=== PATIENT | female | born 1995 | race Caucasian/White ===

== ENCOUNTER 2016-07-02 20:39 | Emergency (ER) | payer OTHER ==
[2016-07-02 20:47] VITALS: BP 125/78; PULSE 83; TEMP 98.3; BMI 18.0
--- NOTE | 2016-07-02 20:48 | PDOC ---
History of Present Illness - General History Source: Patient Exam Limitations: No Limitations - History of Present Illness Initial Comments: 07/02/16 21:48 The patient is a 20 year old female, with no significant past medical history, who presents to the emergency department with abdominal pain for the past 6 hours. She describes her abdominal pain as constant and sharp, moderate in severity, localized in the right lower quadrant with radiation to the right flank. She states that movement exacerbates her pain. She also reports chills, nausea and lightheadedness. She denies any sexual partners. The patient was seen at Urgent Care and was sent to the ED to evaluate for kidney stones. The patient denies chest pain, shortness of breath and headache. Denies fever, vomit, diarrhea and constipation. Denies dysuria, frequency, urgency and hematuria. Allergies: None Past surgical history: None reported Social history: No alcohol, tobacco or drug use reported <Sanchez Manzanares - Last Filed: 07/02/16 21:56> <Viv Larry - Last Filed: 07/03/16 03:16> - General Chief Complaint: Pain, Acute Stated Complaint: RT FLANK PAIN SENT BY URGENT CARE FOR [place] Time Seen by Provider: 07/02/16 20:40 Past History <Sanchez Manzanares - Last Filed: 07/02/16 21:56> - Past Medical History Other medical history: denies - Family Disease History Family Disease History: Heart Disease: Father - Immunization History Immunization Up to Date: Yes - Psycho/Social/Smoking Cessation Hx Anxiety: No Suicidal Ideation: No Smoking History: Never smoked Have you smoked in the past 12 months: No Number of Cigarettes Smoked Daily: 0 Hx Alcohol Use: No Drug/Substance Use Hx: No Substance Use Type: None Hx Substance Use Treatment: No <Viv Larry - Last Filed: 07/03/16 03:16> - Past Medical History Allergies/Adverse Reactions: Allergies Allergy/AdvReac Type Severity Reaction Status Date / Time No Known Allergies Allergy Verified 07/02/16 20:40 Home Medications: Ambulatory Orders Levofloxacin [Levaquin] 750 mg PO DAILY #10 tab 07/02/16 Norethindrone AC-Eth Estradiol [Microgestin 21 1-20 Tablet] 1 each PO ASDIR 06/19 Oxycodone HCl/Acetaminophen [Percocet 5-325 mg Tablet] 1 tab PO Q6H PRN #8 tablet MDD 4 tabs 07/02/16 Review of Systems - Review of Systems Able to Perform ROS?: Yes Comments:: 07/02/16 21:50 GENERAL/CONSTITUTIONAL: +Chills. No fever. No weakness. HEAD, EYES, EARS, NOSE AND THROAT: No change in vision. No ear pain or discharge. No sore throat. CARDIOVASCULAR: +Lightheadedness. No chest pain or shortness of breath RESPIRATORY: No cough, wheezing, or hemoptysis. GASTROINTESTINAL: +Right lower quadrant abdominal pain, nausea. No vomiting, diarrhea or constipation. GENITOURINARY: +Right flank pain. No dysuria, frequency, or change in urination. MUSCULOSKELETAL: No joint or muscle swelling or pain. No neck or back pain. SKIN: No rash NEUROLOGIC: No headache, loss of consciousness, or change in strength/sensation. ENDOCRINE: No increased thirst. No abnormal weight change HEMATOLOGIC/LYMPHATIC: No anemia, easy bleeding, or history of blood clots. ALLERGIC/IMMUNOLOGIC: No hives or skin allergy. <Sanchez Manzanares - Last Filed: 07/02/16 21:56> *Physical Exam - Vital Signs Last Vital Signs Temp Pulse Resp BP Pulse Ox 98.3 F 83 18 125/78 99 07/02/16 20:40 07/02/16 20:40 07/02/16 20:40 07/02/16 20:40 07/02/16 20:40 <Sanchez Manzanares - Last Filed: 07/02/16 21:56> - Vital Signs Last Vital Signs Temp Pulse Resp BP Pulse Ox 98.3 F 83 18 125/78 99 07/02/16 20:40 07/02/16 20:40 07/02/16 20:40 07/02/16 20:40 07/02/16 20:40 - Physical Exam Comments: GENERAL:Young adult woman in mild distress, secondary to right flank/right lower quadrant pain HEAD: Normal with no signs of trauma. EYES: PERRLA, EOMI, sclera anicteric, conjunctiva clear. ENT: Ears normal, nares patent, oropharynx clear without exudates. Dry mucous membranes. NECK: Normal range of motion, supple without lymphadenopathy, JVD, or masses. LUNGS: Breath sounds equal, clear to auscultation bilaterally. No wheezes, and no crackles. HEART:Regular rate and rhythm, normal S1 and S2 without murmur, rub or gallop. ABDOMEN:.normal bowel sounds. Mild tenderness of R midabdomen/lower quadrant ; No guarding or rebound.No masses No distention. EXTREMITIES: Normal range of motion, no edema. No clubbing or cyanosis. No erythema, or tenderness. NEUROLOGICAL: Cranial nerves II through XII grossly intact. Normal speech. No focal neurological deficits. SKIN: Warm, Dry, normal turgor, no rashes or lesions noted. <Viv Larry - Last Filed: 07/03/16 03:16> ED Treatment Course - LABORATORY CBC & Chemistry Diagram: 07/02/16 20:56 07/02/16 20:56 - ADDITIONAL ORDERS Additional order review: Laboratory Results 07/02/16 07/02/16 20:56 20:56 Sodium 135 L Potassium 4.1 Chloride 100 Carbon Dioxide 26 Anion Gap 9 BUN 12 Creatinine 0.6 Creat Clearance w eGFR > 60 Random Glucose 96 Calcium 9.0 Total Bilirubin 0.3 AST 18 ALT 13 Alkaline Phosphatase 84 Total Protein 7.4 Albumin 4.2 Urine Color Yellow Urine Appearance Cloudy Urine pH 6.5 Ur Specific [place] 1.025 Urine Protein 2+ H Urine Glucose (UA) Negative Urine Ketones 3+ H Urine Blood 2+ H Urine Nitrite Positive Urine Bilirubin Negative Urine Urobilinogen 0.2 e.u/dl Ur Leukocyte Esterase Trace Urine RBC 2-4 Urine WBC 30-40 Ur Epithelial Cells Few Urine Bacteria Moderate Urine HCG, Qual Negative 07/02/16 20:56 RBC 5.06 MCV 82.2 MCHC 34.0 RDW 13.5 MPV 8.9 Neutrophils % 75.8 Lymphocytes % 15.7 Monocytes % 6.2 Eosinophils % 1.1 Basophils % 1.2 <Sanchez Manzanares - Last Filed: 07/02/16 21:56> - LABORATORY CBC & Chemistry Diagram: 07/02/16 20:56 07/02/16 20:56 <Viv Larry - Last Filed: 07/03/16 03:16> Progress Note - Progress Note Progress Note: Documentation has been prepared under my direction and personally reviewed by me in its entirety. I attest that this documented accurately reflects all work, treatment, procedures and medical decision making performed by me. <Viv Larry - Last Filed: 07/03/16 03:16> Medical Decision Making - Medical Decision Making As noted above, this 20-year-old woman presents with right midabdomen/right lower quadrant pain for the last several hours. She was seen in urgent care facility and sent here when blood was found in urinalysis. Exam shows some tenderness in the right midabdomen/right lower quadrant. Laboratory evaluation shows moderate elevation of the white blood cell count at 13,500; urinalysis significant for positive nitrite; 2-4 RBCs/WBCs 30-40/few epithelial cells/moderate bacteria with negative PGU Chemistry profile is essentially normal Renal stone protocol CT without contrast performed. This shows no evidence of current urolithiasis or hydronephrosis. However, there is mild subtle periureteral soft tissue stranding at the proximal third of the right ureter. No evidence of abscess/fluid accumulation. No other abnormalities seen. Although this could be consistent with passage of stone, in light of the patient 's urinalysis showing red and white blood cells as well as bacteria, CT imaging most consistent with localized ureteritis. Patient given Rocephin 1 g IV. Patient had minimal relief of her pain with Toradol 30 mg IV given earlier, therefore, she was given Dilaudid 0.5 milligrams IV. She was also given 2 L of normal saline IV. Patient reports significant relief in her pain. Patient will be discharged with prescription for Levaquin 750 mg by mouth daily for the next 10 days. She should return to the emergency room if she has worsening pain or develops fever/ vomiting. Otherwise, she should follow-up with her general doctor; she is also given Dr. Alatorre's referral information for urologic follow-up. <Viv Larry - Last Filed: 07/03/16 03:16> *DC/Admit/Observation/Transfer - Attestations Scribe Attestion: 07/02/16 21:50 Documentation prepared by Sanchez Manzanares, acting as medical practice assistant for Viv Larry MD <Sanchez Manzanares - Last Filed: 07/02/16 21:56> <Viv Larry - Last Filed: 07/03/16 03:16> Diagnosis at time of Disposition: Ureteritis - Discharge Dispostion Disposition: HOME Condition at time of disposition: Stable - Prescriptions Prescriptions: Levofloxacin [Levaquin] 750 mg PO DAILY #10 tab Oxycodone HCl/Acetaminophen [Percocet 5-325 mg Tablet] 1 tab PO Q6H PRN #8 tablet MDD 4 tabs PRN Reason: Severe Pain - Referrals Referrals: Chris Alatorre MD [Staff Physician] - - Patient Instructions Printed Discharge Instructions: Urinary Tract Infection Additional Instructions: drink plenty of fluids Levaquin 750mg daily for 10 days tylenol as needed for mild pain percocet as needed for severe pain return to ER if you have severe pain or develop high fever/vomiting followup with your general doctor/urology(Dr Alatorre)within 5 days - Post Discharge Activity Work/School Note: Back to Work
[2016-07-02 21:07] LABS: PH,URINE 6.5 (4.5-8); URINE APPEARANCE Cloudy; URINE BILIRUBIN Negative (NEGATIVE); URINE GLUCOSE (UA) Negative (NEGATIVE); URINE KETONE 3+ (NEGATIVE); URINE LEUK ESTERASE Trace (NEGATIVE); URINE NITRITE Positive (NEGATIVE); URINE UROBILINOGEN 0.2 E.U/dl (0.2-1.0)
[2016-07-02] MEDS ORDERED: SODIUM CHLORIDE 1,000 ML IV STA ×2 (21:12→22:37)
[2016-07-02 21:14] LABS: URINE BLOOD 2+ (NEGATIVE); URINE COLOR YELLOW; URINE PROTEIN 2+ (NEGATIVE)
[2016-07-02 21:18] LABS: BASOPHIL 1.2 % (0-2.0); EOSINOPHIL 1.1 % (0-4.5); MEAN CELL VOLUME 82.2 fl (80-96); MEAN PLT VOLUME 8.9 fl (7.5-11.1); NEUTROPHILS 75.8 % (42.8-82.8); PLATELET COUNT 331 K/MM3 (134-434); RDW 13.5 % (11.6-15.6); URINE BACTERIA MODERATE /hpf (NEGATIVE); URINE WBC 30-40 (3-5); WHITE BLOOD COUNT 13.5 K/mm3 (4.0-10.0)
[2016-07-02 21:29] LABS: ALBUMIN 4.2 g/dl (3.5-5.0); ALK PHOS 84 U/L (32-92); ANION GAP 9 (8-16); BILIRUBIN,TOTAL 0.3 mg/dl (0.2-1.0); CO2 26 mmol/L (22-28); CREATININE 0.6 mg/dl (0.6-1.3); GLUCOSE,RANDOM 96 mg/dl (74-106); SGOT/AST 18 U/L (10-42); SGPT/ALT 13 U/L (10-40); TOT PROT 7.4 g/dl (6.4-8.3)
[2016-07-02] MEDS ORDERED: KETOROLAC TROMETHAMINE 30 MG/1 ML VIAL IVPUSH ONE (21:58)
[2016-07-02] MEDS ORDERED: KETOROLAC TROMETHAMINE 30 MG/1 ML VIAL ONE (22:03)
[2016-07-02] MEDS ORDERED: CEFTRIAXONE 1 GM in DEXTROSE 5%-WATER - 50 ML IVPB ONE (22:35)
[2016-07-02] MEDS ORDERED: HYDROmorphone HCL CARPU-JECT 1 MG/1 ML DISP.SYRIN IVPUSH ONE (22:36)
[2016-07-02] MEDS ORDERED: HYDROmorphone HCL CARPU-JECT 2 MG/1 ML DISP.SYRIN ONE (22:38)
[2016-07-02] MEDS ORDERED: cefTRIAXone SODIUM 1 GM VIAL ONE (22:39)
== END 2016-07-03 00:09 | disposition home or self-care (01) ==
LOC: FER 20:39
PROC: 3E03329 Introduction of Other Anti-infective into Peripheral Vein, Percutaneous Approach (ICD-10-PCS; principal; 2016-07-02)
PROC: 3E033NZ Introduction of Analgesics, Hypnotics, Sedatives into Peripheral Vein, Percutaneous Approach (ICD-10-PCS; 2016-07-02)
PROC: 3E0333Z Introduction of Anti-inflammatory into Peripheral Vein, Percutaneous Approach (ICD-10-PCS; 2016-07-02)
PROC: 3E0337Z Introduction of Electrolytic and Water Balance Substance into Peripheral Vein, Percutaneous Approach (ICD-10-PCS; 2016-07-02)
DX: N28.89 Other specified disorders of kidney and ureter (principal)
CPT/HCPCS: 36415; 74176; 80053; 81003; 81015; 84703; 85025; 87086; 87186; 99285-25

== ENCOUNTER 2016-11-11 13:59 | Emergency (ER) | payer OTHER ==
[2016-11-11 14:22] VITALS: BP 122/67; PULSE 87; TEMP 98.5; BMI 18.1
--- NOTE | 2016-11-11 14:31 | PDOC ---
History of Present Illness - General History Source: Patient Exam Limitations: No Limitations - History of Present Illness Initial Comments: 11/11/16 14:46 The patient is a 20 year old female, with a significant past medical history of PID (treated 1 year ago), frequent UTIs(last flare in July 2016), who presents to the emergency department complaining of right lower quadrant pain for approximately 2 weeks. Patient was referred to the ED from [facility] for further evaluation of worsening RLQ pain with associated urinary frequency. UA at [facility] revealed 25 leukocytes with nitrates. Patient states the RLQ pain was initially intermittent and crampy in nature, but has become more constant and sharp. She reports the pain radiates into the right flank, but denies any fever or chills. Patient has been taking Aleve for the pain with mild relief. She reports dysuria(which has resolved), frequency, urgency, cloudy urine, and urinary odor, but denies any hematuria. She denies any nausea , vomiting, diarrhea, or constipation. Patients last normal bowel movement was last night. Patient reports she is sexually active with one partner, and denies any history of UTIs. Patient is currently on control pills, and her last menstrual period was approximately 2 weeks ago(normally irregular). Patient states the last time she presented to the ED she was diagnosed with a kidney stone and a UTI(finished antibiotic course as directed). Patient states she did not follow-up with Urology, because the stone passed on its own. She recently returned from [place]. Allergies: NKDA Past Surgical History: None reported Social History: buyer broker. Social ETOH use. Non smoker. No recreational drug use Family History: No family history of ovarian cancer or uterine cancer. Father: Heart disease. <Bud Fung - Last Filed: 11/11/16 14:48> <Tito Lazcano - Last Filed: 11/11/16 16:14> - General Chief Complaint: Pain Stated Complaint: RLQ PAIN X 2 WKS Time Seen by Provider: 11/11/16 14:19 Past History <Bud Fung - Last Filed: 11/11/16 14:48> - Past Medical History Disorders: Yes (URETERITIS) Other medical history: MIGRAINE, CHRONIC NECK PAIN - Family Disease History Family Disease History: Heart Disease: Father - Immunization History Immunization Up to Date: Yes - Psycho/Social/Smoking Cessation Hx Anxiety: No Suicidal Ideation: No Smoking History: Never smoked Have you smoked in the past 12 months: No Number of Cigarettes Smoked Daily: 0 Hx Alcohol Use: No Drug/Substance Use Hx: No Substance Use Type: None Hx Substance Use Treatment: No <Tito Lazcano - Last Filed: 11/11/16 16:14> - Past Medical History Allergies/Adverse Reactions: Allergies Allergy/AdvReac Type Severity Reaction Status Date / Time No Known Allergies Allergy Verified 07/02/16 20:40 Home Medications: Ambulatory Orders Norethindrone AC-Eth Estradiol [Microgestin 21 1-20 Tablet] 1 each PO ASDIR 06/19 Sulfamethoxazole/Trimethoprim [Bactrim Ds -] 1 tab PO BID #14 tablet 11/11/16 Review of Systems - Review of Systems Able to Perform ROS?: Yes Comments:: 11/11/16 14:47 CONSTITUTIONAL: Absent: fever, no chills, no fatigue EYES: Absent: visual changes ENT: Absent: ear pain, no sore throat CARDIOVASCULAR: Absent: chest pain, no palpitations RESPIRATORY: Absent: cough, no SOB GI: Present: +Right lower quadrant pain Absent: no nausea, no vomiting, no constipation, no diarrhea GENITOURINARY: Present: +dysuria, +frequency, +urgency, +cloudy urine, +urinary odor, +right flank pain Absent: no hematuria MUSCULOSKELETAL: Absent: no arthralgia, no myalgia SKIN: Absent: rash NEURO: Absent: headache <Fung,Giomilsy - Last Filed: 11/11/16 14:48> *Physical Exam - Vital Signs Last Vital Signs Temp Pulse Resp BP Pulse Ox 98.5 F 87 15 122/67 99 11/11/16 14:01 11/11/16 14:01 11/11/16 14:01 11/11/16 14:01 11/11/16 14:01 - Physical Exam Comments: 11/11/16 14:47 GENERAL: Well-appearing, well-nourished. No apparent distress. HEENT: Normocephalic, atraumatic. PERRL, EOM intact. CARDIOVASCULAR: Normal S1, S2. Regular rate and rhythm. PULMONARY: Clear to auscultation bilaterally. ABDOMEN: Mild tenderness to palpation in the RLQ without guarding or rebound. Soft, non- distended. PELVIC: Normal external genitalia, no vaginal bleeding or discharge, uterus normal in size and nontender, no adnexal masses or tenderness. GENITOURINARY: Mild right CVA tenderness. EXTREMITIES: Normal ROM in all four extremities. No gross deformities. SKIN: Warm, dry. No rash NEUROLOGICAL: No focal neurological deficits. <Bud Fung - Last Filed: 11/11/16 14:48> - Vital Signs Last Vital Signs Temp Pulse Resp BP Pulse Ox 98.5 F 87 15 122/67 99 11/11/16 14:01 11/11/16 14:01 11/11/16 14:01 11/11/16 14:01 11/11/16 14:01 <Tito Lazcano - Last Filed: 11/11/16 16:14> ED Treatment Course - LABORATORY CBC & Chemistry Diagram: 11/11/16 14:40 11/11/16 14:40 <Bud Fung - Last Filed: 11/11/16 14:48> - LABORATORY CBC & Chemistry Diagram: 11/11/16 14:40 11/11/16 14:40 <Tito Lazcano - Last Filed: 11/11/16 16:14> Medical Decision Making - Medical Decision Making 11/11/16 14:36 Patient with a history of right flank and right lower quadrant pain for 2 weeks , seems to be worsening. Urinary tract symptoms include dysuria, which was present initially but has resolved, and persistent frequency and urgency. No hematuria. No fever or chills. She had a kidney stone approximately one year ago which passed spontaneously. She had PID 1 year ago as well which resolved with antibiotics. Her last menstrual period was 2 weeks ago, she is irregular but on control pills. There are no symptoms of including breast tenderness or nausea. There is been no vomiting or diarrhea. There is been no abdominal surgery. She works as an life insurance sales. Occasional social alcohol, none recently. No tobacco or illicit drugs. No family history of significant cardiac, pulmonary, GI, or metabolic disease. Physical exam shows mild right flank tenderness and right lower quadrant tenderness to palpation without guarding or rebound. 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 11/11/16 14:50 11/11/16 15:17 CBC and chemistries are without significant abnormalities. Notable is a normal white count Urinalysis, however, shows positive nitrites, leukocyte esterase, and blood. Microscopic pending. test negative. <Tito Lazcano - Last Filed: 11/11/16 16:14> *DC/Admit/Observation/Transfer - Attestations Scribe Attestion: 11/11/16 14:46 Documentation prepared by Bud Fung, acting as medical receptionist biller for Tito Odonnell MD. <Bud Fung - Last Filed: 11/11/16 14:48> - Discharge Dispostion Admit: No <Tito Lazcano - Last Filed: 11/11/16 16:14> Diagnosis at time of Disposition: Urinary tract infection Qualifiers: Urinary tract infection type: acute cystitis Hematuria presence: without hematuria Qualified Code(s): N30.00 - Acute cystitis without hematuria - Discharge Dispostion Disposition: HOME Condition at time of disposition: Stable - Prescriptions Prescriptions: Sulfamethoxazole/Trimethoprim [Bactrim Ds -] 1 tab PO BID #14 tablet - Referrals Referrals: Wilbur Castellon MD., MD [Staff Physician] - 1 week - Patient Instructions Printed Discharge Instructions: DI for Urinary Tract Infection (UTI) Additional Instructions: Drink a lot of fluids. Take antibiotic as directed. A urine culture is pending and when the results are already in 24-48 hours, if you need a change of antibiotic he will be contacted Since your UTIs or frequent it is recommended you see a urologist for further evaluation as directed. If you develop fever or chills, severe right-sided back pain, or increased pain with urination, return to ER for further evaluation and treatment.
[2016-11-11 14:48] LABS: PH,URINE 6.5 (4.5-8); URINE BILIRUBIN Negative (NEGATIVE); URINE GLUCOSE (UA) Negative (NEGATIVE); URINE KETONE 1+ (NEGATIVE); URINE NITRITE Positive (NEGATIVE); URINE UROBILINOGEN 0.2 E.U/dl (0.2-1.0)
[2016-11-11] MEDS ORDERED: SODIUM CHLORIDE 1,000 ML IV STA (14:49)
[2016-11-11 14:50] LABS: URINE APPEARANCE HAZY; URINE BLOOD 2+ (NEGATIVE); URINE COLOR YELLOW; URINE LEUK ESTERASE 3+ (NEGATIVE); URINE PROTEIN 1+ (NEGATIVE)
[2016-11-11 15:04] LABS: ALBUMIN 4.3 g/dl (3.5-5.0); ALK PHOS 73 U/L (32-92); ANION GAP 5 (8-16); BILIRUBIN,TOTAL 0.8 mg/dl (0.2-1.0); CALCIUM 8.9 mg/dl (8.4-10.2); CO2 28 mmol/L (22-28); CREATININE 0.6 mg/dl (0.6-1.3); GLUCOSE,RANDOM 91 mg/dl (74-106); SGOT/AST 21 U/L (10-42); SGPT/ALT 17 U/L (10-40); TOT PROT 7.4 g/dl (6.4-8.3)
[2016-11-11 15:05] LABS: EOSINOPHIL 1.5 % (0-4.5); MCH 27.3 pg (25.7-33.7); MEAN CELL VOLUME 82.6 fl (80-96); MEAN PLT VOLUME 8.7 fl (7.5-11.1); PLATELET COUNT 313 K/MM3 (134-434); RDW 13.5 % (11.6-15.6); WHITE BLOOD COUNT 7.4 K/mm3 (4.0-10.8)
[2016-11-11 16:37] LABS: URINE BACTERIA MANY /hpf (NEGATIVE); URINE WBC 40-60 (3-5)
== END 2016-11-11 16:21 | disposition home or self-care (01) ==
LOC: FER 13:59
PROC: 3E0337Z Introduction of Electrolytic and Water Balance Substance into Peripheral Vein, Percutaneous Approach (ICD-10-PCS; principal; 2016-11-11)
DX: N30.00 Acute cystitis without hematuria (principal); N73.9 Female pelvic inflammatory disease, unspecified; Z87.440 Personal history of urinary (tract) infections
CPT/HCPCS: 36415; 76775-TC; 76856-TC; 80053; 81003; 81015; 84703; 85025; 87086; 87186; 87491; 87591; 99284-25